=== PATIENT | female | born 1945 | race African-American/Black ===

== ENCOUNTER → 2016-06-12 | Outpatient (CLI) | payer MEDICARE, OTHER | END | disposition home or self-care (01) | LOC: PCVCCLINIC 13:36 | PROVIDERS: ATTEND Internal Medicine Cardiovascular Disease | DX: E78.00 Pure hypercholesterolemia, unspecified (principal); I25.10 Atherosclerotic heart disease of native coronary artery without angina pectoris; M48.00 Spinal stenosis, site unspecified; I73.9 Peripheral vascular disease, unspecified; I10 Essential (primary) hypertension; I77.9 Disorder of arteries and arterioles, unspecified | CPT/HCPCS: G0463 ==

== ENCOUNTER → 2017-01-01 | Outpatient (CLI) | payer MEDICARE, OTHER ==
--- NOTE | 2017-01-01 14:13 | PCVCIMAG ---
EXAM: BILATERAL CAROTID DUPLEX INDICATION: Carotid Occlusive Disease. FINDINGS: Doppler Measurements (centimeters per second): RIGHT: Peak CCA-85, Peak ECA-116, Diastolic ICA-17, Peak ICA-132, ICA/CCA Ratio-1.6. LEFT: Peak CCA-94, Peak ECA-98, Diastolic ICA-21, Peak ICA-110, ICA/CCA Ratio-1.2. RIGHT CAROTID: The carotid bulb has moderate plaque. The proximal internal carotid artery shows <40% stenosis. The common carotid artery shows no significant stenosis. The external carotid artery shows no significant stenosis. LEFT CAROTID: The carotid bulb has moderate plaque. The proximal internal carotid artery shows <40% stenosis. The common carotid artery shows no significant stenosis. The external carotid artery shows no significant stenosis. Antegrade flow in both vertebral arteries. IMPRESSION: <40% stenosis of the right internal carotid artery with moderate plaque. <40% stenosis of the left internal carotid artery with moderate plaque. LOC:[id number] [id number]
--- NOTE | 2017-01-01 14:59 | PCVCIMAG ---
EXAM: BILATERAL LOWER EXTREMITY ARTERIAL DUPLEX INDICATION: Peripheral Arterial Disease. Leg pain. FINDINGS: Right Leg: Satisfactory arterial waveforms in the common femoral and profunda femoral arteries. Previous stents throughout the superficial femoral artery and upper popliteal artery maintaining satisfactory patency. Mild stenosis mid/distal popliteal artery. The anterior tibial, peroneal, posterior tibial arteries are patent. Left Leg: Satisfactory arterial waveforms in the common femoral and profunda femoral arteries. Mild velocity elevation of 259 cm/s in the mid superficial femoral artery within the proximal portion of a prior stent consistent with 40-50% stenosis not felt to be flow-limiting. Remainder of the SFA stents maintaining good patency. The popliteal artery is patent. The anterior tibial, peroneal, posterior tibial arteries are patent. IMPRESSION: Previous right superficial femoral artery is maintaining good patency. Mild 40-50% restenosis mid left superficial femoral artery within prior stent not felt to be critically flow-limiting. LOC:[id number]
== END | disposition home or self-care (01) ==
LOC: PCVCIMAG 13:27
PROVIDERS: ATTEND Internal Medicine Cardiovascular Disease
DX: I65.23 Occlusion and stenosis of bilateral carotid arteries (principal); I10 Essential (primary) hypertension; E78.00 Pure hypercholesterolemia, unspecified; I70.202 Unspecified atherosclerosis of native arteries of extremities, left leg; I70.291 Other atherosclerosis of native arteries of extremities, right leg; J45.909 Unspecified asthma, uncomplicated; M19.90 Unspecified osteoarthritis, unspecified site; Z95.828 Presence of other vascular implants and grafts; Z90.49 Acquired absence of other specified parts of digestive tract; Z79.899 Other long term (current) drug therapy; Z87.891 Personal history of nicotine dependence; Z88.8 Allergy status to other drugs, medicaments and biological substances
CPT/HCPCS: 80061; 93005; 93880; 93925; G0463

== ENCOUNTER → 2017-10-02 | Outpatient (CLI) | payer MEDICARE, OTHER | END | disposition home or self-care (01) | LOC: PCVCIMAG 14:49 | DX: I73.9 Peripheral vascular disease, unspecified (principal); I67.9 Cerebrovascular disease, unspecified; I10 Essential (primary) hypertension; I25.10 Atherosclerotic heart disease of native coronary artery without angina pectoris; E78.5 Hyperlipidemia, unspecified; I65.23 Occlusion and stenosis of bilateral carotid arteries; E78.1 Pure hyperglyceridemia; E78.00 Pure hypercholesterolemia, unspecified; Z88.8 Allergy status to other drugs, medicaments and biological substances | CPT/HCPCS: 93005; 93880; 93925; G0463 ==

== ENCOUNTER → 2018-08-12 | Outpatient (CLI) | payer MEDICARE, OTHER | END | disposition home or self-care (01) | LOC: PCVCCLINIC 13:30 | PROVIDERS: ATTEND Internal Medicine Cardiovascular Disease | DX: I25.10 Atherosclerotic heart disease of native coronary artery without angina pectoris (principal); I73.9 Peripheral vascular disease, unspecified; I65.23 Occlusion and stenosis of bilateral carotid arteries; R94.31 Abnormal electrocardiogram [ECG] [EKG]; J43.9 Emphysema, unspecified; E78.00 Pure hypercholesterolemia, unspecified; I10 Essential (primary) hypertension; Z87.891 Personal history of nicotine dependence; Z88.8 Allergy status to other drugs, medicaments and biological substances; Z86.2 Personal history of diseases of the blood and blood-forming organs and certain disorders involving the immune mechanism; Z79.899 Other long term (current) drug therapy | CPT/HCPCS: 36415; 80061; 93005; G0463 ==

== ENCOUNTER → 2019-02-23 | Outpatient (CLI) | payer MEDICARE, OTHER ==
--- NOTE | 2019-02-23 15:01 | PCVCIMAG ---
EXAM: BILATERAL LOWER EXTREMITY ARTERIAL DUPLEX INDICATION: Peripheral Arterial Disease. Leg pain. FINDINGS: Right Leg: Common femoral artery is patent. 70% stenosis proximal profunda femoral artery. Superficial femoral artery and popliteal artery are patent. Previous stents throughout the superficial femoral artery are patent. The anterior tibial, peroneal, and posterior tibial arteries are patent. Left Leg: Mild stenosis common femoral artery. 70% stenosis origin profunda femoral artery. 40% restenosis proximal superficial femoral artery within prior stent. Otherwise prior stents in the superficial femoral artery are patent. Popliteal artery is patent. The anterior tibial, peroneal, and posterior tibial arteries are patent. IMPRESSION: Previous right superficial femoral artery stents are patent. 40% restenosis proximal left superficial femoral artery within prior stent not felt to be flow-limiting. LOC:[id number]
--- NOTE | 2019-02-23 15:04 | PCVCIMAG ---
EXAM: BILATERAL CAROTID DUPLEX INDICATION: Carotid Occlusive Disease. FINDINGS: Doppler Measurements (centimeters per second): RIGHT: Peak CCA-68, Peak ECA-89, Diastolic ICA-21, Peak ICA-169, ICA/CCA Ratio-2.5. LEFT: Peak CCA-91, Peak ECA-89, Diastolic ICA-16, Peak ICA-122, ICA/CCA Ratio-1.3. RIGHT CAROTID: The carotid bulb has moderate plaque. The proximal internal carotid artery shows 60% stenosis. The common carotid artery shows no significant stenosis. The external carotid artery shows no significant stenosis. LEFT CAROTID: The carotid bulb has moderate plaque. The proximal internal carotid artery shows 40-50% stenosis. The common carotid artery shows no significant stenosis. The external carotid artery shows no significant stenosis. Antegrade flow in both vertebral arteries. IMPRESSION: 60% stenosis of the right internal carotid artery with moderate plaque. 40-50% stenosis of the left internal carotid artery with moderate plaque. Little overall change since September 2017 study. LOC:[id number]
== END | disposition home or self-care (01) ==
LOC: PCVCIMAG 13:27
PROVIDERS: ATTEND Internal Medicine Cardiovascular Disease
DX: I65.23 Occlusion and stenosis of bilateral carotid arteries (principal); I25.10 Atherosclerotic heart disease of native coronary artery without angina pectoris; I10 Essential (primary) hypertension; E78.00 Pure hypercholesterolemia, unspecified; E78.1 Pure hyperglyceridemia; J43.9 Emphysema, unspecified; Z90.49 Acquired absence of other specified parts of digestive tract; Z90.09 Acquired absence of other part of head and neck; Z82.49 Family history of ischemic heart disease and other diseases of the circulatory system; Z83.3 Family history of diabetes mellitus; Z87.891 Personal history of nicotine dependence; Z88.8 Allergy status to other drugs, medicaments and biological substances; Z95.828 Presence of other vascular implants and grafts; Z79.899 Other long term (current) drug therapy
CPT/HCPCS: 36415; 80061; 93005; 93880; 93925; G0463

== ENCOUNTER → 2019-04-06 | Outpatient (CLI) | payer MEDICARE, OTHER ==
--- NOTE | 2019-04-06 17:21 | PCVCIMAG ---
APPROVED REPORT Study performed: 04/06/2019 13:23:57 EXAM: Comprehensive 2D, Doppler, and color-flow Echocardiogram Patient Location: Echo lab Status: routine BSA: 1.62 HR: 61 bpmBP: 150/64 mmHg Rhythm: NSR Other Information Study Quality: Good Risk Factors: Cardiac Risk Factors: HTN, Hyperlipidemia Indications Emphysema, PAD 2D Dimensions IVSd: 15.71 (7-11mm)LVOT Diam: 20.41 (18-24mm) LVDd: 30.88 mm PWd: 12.47 (7-11mm)Ascending Ao: 33.72 (22-36mm) LVDs: 27.39 (25-40mm) Left Atrium: 32.80 (27-40mm) Aortic Root: 31.03 mm LV Single Plane 4CH: 59.80 % LV Single Plane 2CH: 63.65 % Biplane EF: 63.6 % Volumes Left Atrial Volume (Systole) Single Plane 4CH: 44.77 mLSingle Plane 2CH: 38.17 mL LA ESV Index: 27.00 mL/m2 Aortic Valve AoV Peak Sb.: 1.29 m/s AO Peak Gr.: 6.68 mmHg Mitral Valve E/A Ratio: 0.7 MV Decel. Time: 307.92 ms MV E Max Sb.: 0.60 m/s MV A Sb.: 0.81 m/s IVRT: 48.44 ms TDI E/Lateral E': 10.00E/Medial E': 12.00 Medial E' Sb.: 0.05 m/s Lateral E' Sb.: 0.06 m/s Pulmonary Valve PV Peak Gr.: 2.12 mmHg Pulmonary Vein P Vein S: 0.73 m/sP Vein A: 0.38 m/s P Vein D: 0.40 m/sP Vein A Dur.: 128.0 msec P Vein S/D Ratio: 1.83 Tricuspid Valve TR Peak Sb.: 2.66 m/s TR Peak Gr.: 28.26 mmHg Left Ventricle The left ventricle is normal size. There is normal LV segmental wall motion. Mild concentric left ventricular hypertrophy. Left ventricular systolic function is normal. The left ventricular ejection fraction is within the normal range. LVEF is 55-60%. Mild diastolic dysfunction is present (impaired relaxation pattern). Right Ventricle The right ventricle is normal size. The right ventricular systolic function is normal. Atria The left atrium size is normal. The right atrium size is normal. Aortic Valve The aortic valve is trileaflet, mildly sclerotic. No aortic regurgitation is present. There is no aortic valvular stenosis. Mitral Valve The mitral valve is normal in structure. There is no mitral valve regurgitation noted. No evidence of mitral valve stenosis. Tricuspid Valve The tricuspid valve is normal in structure. Mild tricuspid regurgitation. Pulmonary artery pressure is 35mmHg. Pulmonic Valve The pulmonary valve is normal in structure. Trace pulmonic regurgitation. Great Vessels The aortic root is normal in size. IVC is normal in size and collapses >50% with inspiration. Pericardium There is no pericardial effusion. <Conclusion> Left ventricular systolic function is normal. There is normal LV segmental wall motion. LVEF is 55-60%. Mild diastolic dysfunction The aortic valve is trileaflet, mildly sclerotic. No aortic regurgitation or stenosis. The mitral valve is normal in structure. No mitral valve regurgitation. Mild tricuspid regurgitation. Pulmonary artery pressure of 35mmHg. There is no pericardial effusion.
== END | disposition home or self-care (01) ==
LOC: PCVCIMAG 13:12
PROVIDERS: ATTEND Internal Medicine Cardiovascular Disease
DX: I25.10 Atherosclerotic heart disease of native coronary artery without angina pectoris (principal); R94.31 Abnormal electrocardiogram [ECG] [EKG]; I10 Essential (primary) hypertension; E78.5 Hyperlipidemia, unspecified; I07.1 Rheumatic tricuspid insufficiency; I73.9 Peripheral vascular disease, unspecified; I65.23 Occlusion and stenosis of bilateral carotid arteries; J43.9 Emphysema, unspecified; E78.00 Pure hypercholesterolemia, unspecified; Z82.49 Family history of ischemic heart disease and other diseases of the circulatory system; Z87.891 Personal history of nicotine dependence; Z88.8 Allergy status to other drugs, medicaments and biological substances
CPT/HCPCS: 93005; 93306; G0463